=== PATIENT | female | born 1950 | race Caucasian/White ===

== ENCOUNTER → 2024-05-10 11:58 | Outpatient (REF) | payer MEDICARE, BC, SELFPAY | LOC: HWRAD 11:58 | PROVIDERS: ATTENDING PHYSICIAN Family Medicine | DX: Z12.31 Encounter for screening mammogram for malignant neoplasm of breast (principal); N95.9 Unspecified menopausal and perimenopausal disorder | CPT/HCPCS: 77063; 77067; 77080 ==